=== PATIENT | male | born 1990 | race Caucasian/White ===

== ENCOUNTER 2016-10-13 13:16 | Emergency (ER) | payer SELFPAY ==
[~2016-10-13] VITALS: Ht 172.7 cm; Wt 77.1 kg
[2016-10-13 13:20] VITALS: BP 143/87
== END 2016-10-13 14:02 | disposition home or self-care (01) ==
LOC: ER 13:17
DX: Z23 Encounter for immunization (principal)
CPT/HCPCS: 99281; A4606; Z7610; Z7502